=== PATIENT | female | born 1930 | race Caucasian/White ===

== ENCOUNTER 2017-02-26 22:02 | Inpatient (IN) | payer OTHER, MEDICARE ==
[~2017-02-26] VITALS: Ht 167.6 cm; Wt 67.0 kg
[~2017-02-26 22:02] MED LIST: MULTI VITAMIN1 EACH PO; PRESERVISION T1 EACH PO; ZESTRIL20 MG PO; ZOCOR20 MG PO
[2017-02-27 06:10] VITALS: BP 177/85
[2017-02-27 10:08] LABS: HEMATOCRIT 34.3 % (36.0-46.0); MCV 95.5 FL (83-99)
[2017-02-27 12:30] VITALS: BP 58/36
[2017-02-27 12:48] LABS: POINT-OF-CARE METER ID UU13113712
[2017-02-27 12:48] LABS: HEMATOCRIT 32.3 % (36.0-46.0); MCH 31.2 PG (29.0-34.0); MCHC 32.8 G/DL (30.0-36.0); MEAN PLAT.VOLUME 10.2 uM^3 (9.5-12.4); PLATELET COUNT 189 K/uL (156-360); RBC DIS.WIDTH-CV 12.8 % (11.8-14.6); RBC DIS.WIDTH-SD 44.6 % (39-53); WHITE BLOOD COUNT 15.3 K/uL (4.1-10.2)
[2017-02-27 12:50] VITALS: BP 121/77
[2017-02-27 13:03] LABS: CHLORIDE 104 mEq/L (99-109); GLUCOSE 177 mg/dL (70-99); POTASSIUM 3.5 mEq/L (3.7-5.4); SODIUM 139 mEq/L (136-147)
[2017-02-27 13:07] LABS: ANION GAP 10 MEQ/L (2-14); GFR ESTIMATE (CALCULATED) > 59 mL/min/; UREA NITROGEN (BUN) 12 mg/dL (9-23)
[2017-02-27 13:09] LABS: TROP-I INTERPRETATION NEGATIVE; TROPONIN-I < 0.01 ng/mL (0.0-0.30)
[2017-02-27 16:00] VITALS: BP 129/61
[2017-02-27 19:34] VITALS: BP 144/72
[2017-02-28] VITALS (7 sets, daily range): BP systolic 109–149; BP diastolic 57–75
[2017-02-28 07:13] LABS: EOSINOPHIL (%) 0.4 % (0-5); HEMATOCRIT 26.8 % (36.0-46.0); IMMATURE GRANULOCYTE (%) 0.4 % (0.0-0.7); INSTRUMENT ABS NEUTROPHIL CT 6.6 K/uL; MCH 32.9 PG (29.0-34.0); MCHC 34.3 G/DL (30.0-36.0); MCV 95.7 FL (83-99); MONOCYTE (%) 11.9 % (3-12); MONOCYTE COUNT 1.2 K/uL (0-0.8); NEUTROPHIL (%) 66.8 % (45-76); NEUTROPHIL COUNT 6.6 K/uL (1.8-6.4); PLATELET COUNT 169 K/uL (156-360); RBC DIS.WIDTH-CV 12.9 % (11.8-14.6); RBC DIS.WIDTH-SD 45.6 % (39-53); WHITE BLOOD COUNT 9.9 K/uL (4.1-10.2)
[2017-02-28 07:35] LABS: ANION GAP 5 MEQ/L (2-14); CHLORIDE 105 MEQ/L (99-109); GFR ESTIMATE (CALCULATED) > 59 mL/min/; GLUCOSE 121 mg/dL (70-99); POTASSIUM 4.4 MEQ/L (3.7-5.4); SODIUM 136 MEQ/L (136-147); UREA NITROGEN (BUN) 11 mg/dL (9-23)
[2017-03-01 00:28] VITALS: BP 142/64
[2017-03-01 04:08] VITALS: BP 149/73
[2017-03-01 08:13] VITALS: BP 141/65
[2017-03-01 09:21] LABS: HEMATOCRIT 28.5 % (36.0-46.0); MCV 96.3 FL (83-99)
[2017-03-01] MEDS ORDERED: ELIQUIS2.5 MG PO (10:54)
[2017-03-01] MEDS ORDERED: HYDROCODON-ACE1 EAC7 PO (10:54)
[2017-03-01] MEDS ORDERED: TYLENOL REGULA325 MG PO (10:55)
[2017-03-01] MEDS ORDERED: BISAC-EVAC10 MG PR (10:55)
[2017-03-01 11:33] VITALS: BP 162/73
[2017-03-01 15:29] VITALS: BP 157/78
== END 2017-03-01 16:23 | DRG 470 ==
LOC: ENRESERV 22:02 → 2SOUTH 02-27 05:32 → 3WEST 02-27 05:32 → 2SOUTH 02-27 12:45 → 3WEST 03-01 16:23
PROVIDERS: Internal Medicine; Orthopaedic Surgery; Physician Assistant
PROC: 0SR904A Replacement of Right Hip Joint with Ceramic on Polyethylene Synthetic Substitute, Uncemented, Open Approach (ICD-10-PCS; principal; 2017-02-27)
DX: M16.11 Unilateral primary osteoarthritis, right hip (principal); I95.9 Hypotension, unspecified; E87.6 Hypokalemia; Z96.653 Presence of artificial knee joint, bilateral; I10 Essential (primary) hypertension; E78.00 Pure hypercholesterolemia, unspecified
CPT/HCPCS: 80048; 82948; 84484; 85014; 85018; 85025; 85027; 93005; 94799; J0690; J1885; J3010; J7050; J7120; Q0175; S0020

== ENCOUNTER 2017-03-01 10:29 | Inpatient (IN) | payer OTHER, MEDICARE ==
[~2017-03-01] VITALS: Ht 167.6 cm; Wt 69.2 kg
[2017-03-01] MEDS ORDERED: ELIQUIS2.5 MG PO (10:54)
[2017-03-01] MEDS ORDERED: HYDROCODON-ACE1 EAC7 PO (10:54)
[2017-03-01] MEDS ORDERED: BISAC-EVAC10 MG PR (10:55)
[2017-03-01] MEDS ORDERED: TYLENOL REGULA325 MG PO (10:55)
[2017-03-01 17:06] VITALS: BP 147/69
[2017-03-01 21:08] LABS: POINT-OF-CARE METER ID UU14174215
[2017-03-02 00:40] VITALS: BP 135/63
[2017-03-02 05:07] VITALS: BP 147/71
[2017-03-02 06:33] LABS: HEMATOCRIT 27.3 % (36.0-46.0); MCHC 33.3 G/DL (30.0-36.0); MCV 96.1 FL (83-99); PLATELET COUNT 192 K/uL (156-360); RBC DIS.WIDTH-SD 46.2 % (39-53); RED BLOOD COUNT 2.84 M/uL (3.80-5.20); WHITE BLOOD COUNT 10.8 K/uL (4.1-10.2)
[2017-03-02 07:01] LABS: ALKALINE PHOSPHATASE 75 IU/L (3-129); ANION GAP 9 MEQ/L (2-14); CHLORIDE 104 MEQ/L (99-109); GFR ESTIMATE (CALCULATED) > 59 mL/min/; GLUCOSE 110 mg/dL (70-99); SAMPLE HEMOLYSIS CHECK 0; SAMPLE ICTERIC CHECK 0; SAMPLE LIPEMIA CHECK 0; SODIUM 137 MEQ/L (136-147); UREA NITROGEN (BUN) 13 mg/dL (9-23)
[2017-03-02 07:12] LABS: POINT-OF-CARE METER ID UU13113720; POINT-OF-CARE USER ID AHSSSJB31
[2017-03-02 15:37] VITALS: BP 147/74
[2017-03-02 16:52] LABS: POINT-OF-CARE METER ID UU13113720
[2017-03-03 04:21] VITALS: BP 145/72
[2017-03-03 08:15] VITALS: BP 134/64
[2017-03-03 11:54] LABS: POINT-OF-CARE METER ID UU13113720; POINT-OF-CARE USER ID AHSSSJB31
[2017-03-03 15:29] VITALS: BP 119/67
[2017-03-04 04:37] VITALS: BP 135/64
[2017-03-04 15:14] VITALS: BP 137/66
[2017-03-05 05:31] VITALS: BP 138/64
[2017-03-05 15:32] VITALS: BP 132/61
[2017-03-06 05:03] VITALS: BP 140/67
[2017-03-06] MEDS ORDERED: TYLENOL REGULA325 MG PO (09:45)
[2017-03-06] MEDS ORDERED: SENNA PLUS TAB1 EACH PO (09:45)
[2017-03-06] MEDS ORDERED: ELIQUIS2.5 MG PO (09:45)
[2017-03-06] MEDS ORDERED: Milk Of Magnesia,MOM PO (09:45)
[2017-03-06] MEDS ORDERED: DOCUSATE SODIU100 MG PO (09:45)
== END 2017-03-06 14:18 | disposition home health service (06) | DRG 560 ==
LOC: 3WEST 10:29
PROVIDERS: Physical Medicine & Rehabilitation Pain Medicine
PROC: F07M0ZZ Range of Motion and Joint Mobility Treatment of Musculoskeletal System - Whole Body (ICD-10-PCS; principal; 2017-03-01)
DX: Z47.1 Aftercare following joint replacement surgery (principal); R26.2 Difficulty in walking, not elsewhere classified; D62 Acute posthemorrhagic anemia; Z96.641 Presence of right artificial hip joint; Z96.653 Presence of artificial knee joint, bilateral; I10 Essential (primary) hypertension; H91.90 Unspecified hearing loss, unspecified ear; E88.09 Other disorders of plasma-protein metabolism, not elsewhere classified; E77.8 Other disorders of glycoprotein metabolism
CPT/HCPCS: 80053; 82948; 85027; 97110 GO; 97530 GP

== ENCOUNTER → 2017-09-19 | Outpatient (CLI) | payer OTHER, MEDICARE ==
[~2017-09-19] MED LIST changes: +BISAC-EVAC10 MG PR; +DOCUSATE SODIU100 MG PO; +ELIQUIS2.5 MG PO; +HYDROCODON-ACE1 EAC7 PO; +Milk Of Magnesia,MOM PO; +SENNA PLUS TAB1 EACH PO; +TYLENOL REGULA325 MG PO
== END | disposition home or self-care (01) ==
LOC: NUC 08:45
DX: M41.86 Other forms of scoliosis, lumbar region (principal); M19.032 Primary osteoarthritis, left wrist; M19.031 Primary osteoarthritis, right wrist; M19.042 Primary osteoarthritis, left hand; M19.041 Primary osteoarthritis, right hand; M19.072 Primary osteoarthritis, left ankle and foot; M19.071 Primary osteoarthritis, right ankle and foot; Z96.641 Presence of right artificial hip joint; Z96.653 Presence of artificial knee joint, bilateral
CPT/HCPCS: 78315; A9503